=== PATIENT | male | born 1940 | race Caucasian/White ===

== ENCOUNTER → 2019-01-28 | Outpatient (CLI) | payer OTHER ==
[~2019-01-28] MED LIST: ALBU90OI INH; ALBU90OI PO; ALBU90OI6 INH; BUME1 PO; CALCIUM + VITA1 EACH PO; CARV25 PO; CARV3.125 PO; CLOT10 PO; DOXY100 PO; Daily Multiple1 EACH PO; FINA5 PO; FISH1000 PO; FLUSAL2505 INH; FLUSAL5005 IH; FLUSAL5005 INH; GABA100 PO; LIVALO2 MG PO; LOSA25; MAGCHL64ER PO; MAGNESIUM GLUC PO; MONT10T PO; MONT5TCH PO; NABU500 PO; NAPR500; NEBI5 PO; OMEP20ER PO; POTASSIUM GLUC500 MG PO; PRED10 PO; PRED20 PO; PRED5 PO; Prinivil10 MG PO; Qualaquin324 MG PO; Refresh Eye Dr1 EACH; SPIR25 PO; TORSE20 PO; WARF5 PO; ZOLP12.5 PO; [UNRECOGNIZED DRUG - CODE]; [UNRECOGNIZED DRUG - OTHER] INH
== END | disposition home or self-care (01) ==
LOC: LAB 17:19 → LAB SHORT 17:19
DX: R31.0 Gross hematuria (principal)
CPT/HCPCS: 87086

== ENCOUNTER 2019-12-15 14:17 | Day surgery (SDC) | payer OTHER | END 2019-12-15 22:56 | disposition home or self-care (01) | LOC: US 14:17 | DX: R59.0 Localized enlarged lymph nodes (principal) | CPT/HCPCS: 76536 ==

== ENCOUNTER → 2020-04-19 | Outpatient (CLI) | payer OTHER | END | disposition home or self-care (01) | LOC: LAB 10:45 → LAB SHORT 10:45 | DX: R05 Cough (principal) | CPT/HCPCS: 87070; 87186; 87205 ==

== ENCOUNTER → 2020-05-05 | Outpatient (CLI) | payer OTHER | END | disposition home or self-care (01) | LOC: PLD 08:15 → LAB SHORT 08:15 | DX: R05 Cough (principal) | CPT/HCPCS: 87070; 87205 ==

== ENCOUNTER → 2022-09-05 | Outpatient (CLI) | payer OTHER ==
[2022-09-05 15:46] LABS: BASOPHILS ABSOLUTE AUTO 0.06 K/mm3 (0.00-0.23); BASOPHILS PERCENT AUTO 1 % (0-2); EOSINOPHILS ABSOLUTE AUTO 0.08 K/mm3 (0.00-0.68); EOSINOPHILS PERCENT AUTO 1 % (0-6); Hematocrit 42.1 % (37.0-53.0); Hemoglobin 12.6 g/dL (13.5-17.5); IMMATURE GRAN PERCENT AUTO 1 % (0-1); LYMPHOCYTES ABSOLUTE AUTO 1.91 K/mm3 (0.84-5.20); LYMPHOCYTES PERCENT AUTO 18 % (21-46); MONOCYTES ABSOLUTE AUTO 0.82 K/mm3 (0.16-1.47); MONOCYTES PERCENT AUTO 8 % (4-13); Mean Corpuscular HGB 27.9 pg (26.0-34.0); Mean Corpuscular HGB Conc 29.9 g/dL (31.5-36.5); Mean Corpuscular Volume 93 fL (80-100); NEUTROPHILS ABSOLUTE AUTO 7.61 K/mm3 (1.96-9.15); NEUTROPHILS PERCENT AUTO 72 % (41-73); Platelet Count 236 K/mm3 (150-400); RDW Coefficient Variation 16.1 % (11.7-14.2); RDW Standard Deviation 54.4 fL (35.1-46.3); RETICULOCYTE COUNT PERCENT 2.19 % (0.50-2.50); Red Blood Cell Count 4.52 M/mm3 (4.30-5.90); White Blood Cell Count 10.58 K/mm3 (4.00-11.30)
[2022-09-05 17:19] LABS: Microalb/Creat Ratio UR, Rand 15.704 mg/g (0.000-30.000); Microalbumin, Random Urine 22.3 mg/L (0.000-20.000)
[2022-09-05 18:04] LABS: Alanine Aminotransfer (ALT/SGP 26 U/L (12-78); Albumin, Blood 3.5 g/dL (3.4-5.0); Alk Phos 44 U/L (50-136); Anion Gap 7 mmol/L (6-16); Aspartate Aminotrans (AST/SGOT 17 U/L (12-37); Bilirubin, Direct <0.1 mg/dL (0.0-0.3); Bilirubin, Indirect Unable to Calculate mg/dL (0.1-0.7); Bilirubin, Total 0.4 mg/dL (0.1-1.0); Blood Urea Nitrogen 39 mg/dL (8-24); Bun/Creatinine Ratio 20.5 (12.0-20.0); CHOL/HDL RATIO 4.6; CO2, Blood 33 mmol/L (21-32); Calcium, Blood 9.4 mg/dL (8.5-10.1); Chloride, Blood 100 mmol/L (98-108); Cholesterol 216 mg/dL (50-200); Ferritin, Serum 51 ng/mL (26-388); Globulin, Blood 3.6 g/dL (2.2-4.0); Glomerular Filtration Rate 35 (60-); Glucose, Blood 87 mg/dL (70-99); HDL Cholesterol 47 mg/dL (>39); Iron Serum 59 ug/dL (65-175); LDL/HDL RATIO 2.8; Low Density Lipoprotein Chol 131 mg/dL (0-110); Magnesium, Blood 2.1 mg/dL (1.6-2.4); Potassium, Blood 3.9 mmol/L (3.5-5.5); Sodium, Blood 140 mmol/L (136-145); Total Protein, Blood 7.1 g/dL (6.4-8.2); Triglycerides 190 mg/dL (30-160); Very Low Density Lipoprot Chol 38 mg/dL (6-32)
[2022-09-05 18:10] LABS: Free Thyroxine 0.96 ng/dL (0.70-1.60); Percent Saturation 14.8 % (20.0-50.0); Total Iron Binding Capacity 400 ug/dL (250-450)
== END | disposition home or self-care (01) ==
LOC: LAB SHORT 14:08 → LAB 14:08
PROVIDERS: Internal Medicine
DX: D64.9 Anemia, unspecified (principal); E11.8 Type 2 diabetes mellitus with unspecified complications; E78.5 Hyperlipidemia, unspecified; E02 Subclinical iodine-deficiency hypothyroidism; Z79.899 Other long term (current) drug therapy
CPT/HCPCS: 80048; 80061; 80076; 82043; 82570; 82728; 83036; 83540; 83550; 83735; 84439; 84443; 85025; 85045

== ENCOUNTER → 2022-10-15 | Outpatient (CLI) | payer OTHER ==
[2022-10-15 14:57] LABS: Albumin/Globulin Ratio 0.9 (0.8-1.8); Bilirubin, Total 0.5 mg/dL (0.1-1.0); Bun/Creatinine Ratio 28.5 (12.0-20.0); Creatinine, Blood 1.79 mg/dL (0.60-1.20); Globulin, Blood 3.4 g/dL (2.2-4.0); Potassium, Blood 3.7 mmol/L (3.5-5.5); Total Protein, Blood 6.4 g/dL (6.4-8.2)
== END | disposition home or self-care (01) ==
LOC: LAB SHORT 10:30 → LAB 10:30
PROVIDERS: Internal Medicine
DX: C79.89 Secondary malignant neoplasm of other specified sites (principal); I50.20 Unspecified systolic (congestive) heart failure
CPT/HCPCS: 36415; 80053; 83880

== ENCOUNTER 2022-10-17 01:07 | Day surgery (SDC) | payer OTHER | END 2022-10-17 22:35 | disposition home or self-care (01) | LOC: WOUND 01:07 | DX: I87.313 Chronic venous hypertension (idiopathic) with ulcer of bilateral lower extremity (principal); E11.622 Type 2 diabetes mellitus with other skin ulcer; L97.812 Non-pressure chronic ulcer of other part of right lower leg with fat layer exposed; L97.822 Non-pressure chronic ulcer of other part of left lower leg with fat layer exposed; I87.2 Venous insufficiency (chronic) (peripheral); E11.51 Type 2 diabetes mellitus with diabetic peripheral angiopathy without gangrene; Z87.891 Personal history of nicotine dependence; J44.9 Chronic obstructive pulmonary disease, unspecified; I13.0 Hypertensive heart and chronic kidney disease with heart failure and stage 1 through stage 4 chronic kidney disease, or unspecified chronic kidney disease; E11.22 Type 2 diabetes mellitus with diabetic chronic kidney disease; N18.6 End stage renal disease; I50.9 Heart failure, unspecified; I48.91 Unspecified atrial fibrillation; I25.10 Atherosclerotic heart disease of native coronary artery without angina pectoris; Z88.1 Allergy status to other antibiotic agents; Z88.8 Allergy status to other drugs, medicaments and biological substances | CPT/HCPCS: A9270; G0463 ==

== ENCOUNTER 2022-10-24 02:47 | Day surgery (SDC) | payer OTHER | END 2022-10-24 23:18 | disposition home or self-care (01) | LOC: WOUND 02:47 | DX: I87.313 Chronic venous hypertension (idiopathic) with ulcer of bilateral lower extremity (principal); L97.822 Non-pressure chronic ulcer of other part of left lower leg with fat layer exposed; L97.812 Non-pressure chronic ulcer of other part of right lower leg with fat layer exposed; I87.2 Venous insufficiency (chronic) (peripheral); I73.9 Peripheral vascular disease, unspecified | CPT/HCPCS: A9270; G0463 ==

== ENCOUNTER 2022-11-04 02:05 | Day surgery (SDC) | payer OTHER | END 2022-11-04 22:41 | disposition home or self-care (01) | LOC: WOUND 02:05 | DX: I87.313 Chronic venous hypertension (idiopathic) with ulcer of bilateral lower extremity (principal); I87.331 Chronic venous hypertension (idiopathic) with ulcer and inflammation of right lower extremity; E11.622 Type 2 diabetes mellitus with other skin ulcer; L97.812 Non-pressure chronic ulcer of other part of right lower leg with fat layer exposed; L97.822 Non-pressure chronic ulcer of other part of left lower leg with fat layer exposed; L97.922 Non-pressure chronic ulcer of unspecified part of left lower leg with fat layer exposed; L97.202 Non-pressure chronic ulcer of unspecified calf with fat layer exposed; I87.2 Venous insufficiency (chronic) (peripheral); I73.9 Peripheral vascular disease, unspecified | CPT/HCPCS: G0463 ==

== ENCOUNTER → 2022-11-08 | Outpatient (CLI) | payer OTHER ==
[2022-11-08 12:32] LABS: BASOPHILS ABSOLUTE AUTO 0.04 K/mm3 (0.00-0.23); BASOPHILS PERCENT AUTO 0 % (0-2); EOSINOPHILS ABSOLUTE AUTO 0.06 K/mm3 (0.00-0.68); EOSINOPHILS PERCENT AUTO 1 % (0-6); Hematocrit 39.3 % (37.0-53.0); IMMATURE GRAN ABSOLUTE AUTO 0.13 K/mm3 (0.00-0.10); IMMATURE GRAN PERCENT AUTO 1 % (0-1); LYMPHOCYTES ABSOLUTE AUTO 0.96 K/mm3 (0.84-5.20); LYMPHOCYTES PERCENT AUTO 10 % (21-46); MONOCYTES ABSOLUTE AUTO 0.59 K/mm3 (0.16-1.47); MONOCYTES PERCENT AUTO 6 % (4-13); Mean Corpuscular HGB 28.3 pg (26.0-34.0); Mean Corpuscular HGB Conc 30.5 g/dL (31.5-36.5); Mean Corpuscular Volume 93 fL (80-100); Mean Platelet Volume 10.5 fL (9.1-12.4); NEUTROPHILS ABSOLUTE AUTO 8.37 K/mm3 (1.96-9.15); NEUTROPHILS PERCENT AUTO 82 % (41-73); Platelet Count 258 K/mm3 (150-400); RDW Coefficient Variation 17.5 % (11.7-14.2); RDW Standard Deviation 59.2 fL (35.1-46.3); Red Blood Cell Count 4.24 M/mm3 (4.30-5.90); White Blood Cell Count 10.15 K/mm3 (4.00-11.30)
[2022-11-08 14:05] LABS: Bun/Creatinine Ratio 35.9 (12.0-20.0); Calcium, Blood 9.2 mg/dL (8.5-10.1); Creatinine, Blood 1.81 mg/dL (0.60-1.20); Magnesium, Blood 2.4 mg/dL (1.6-2.4); Potassium, Blood 4.2 mmol/L (3.5-5.5)
== END | disposition home or self-care (01) ==
LOC: LAB SHORT 10:30 → LAB 10:30
PROVIDERS: Internal Medicine
DX: D64.9 Anemia, unspecified (principal); M79.605 Pain in left leg; M79.604 Pain in right leg; Z79.899 Other long term (current) drug therapy
CPT/HCPCS: 80048; 83735; 85025

== ENCOUNTER 2022-11-18 01:29 | Day surgery (SDC) | payer OTHER | END 2022-11-18 22:45 | disposition home or self-care (01) | LOC: WOUND 01:29 | DX: E11.622 Type 2 diabetes mellitus with other skin ulcer (principal); L97.812 Non-pressure chronic ulcer of other part of right lower leg with fat layer exposed; L97.822 Non-pressure chronic ulcer of other part of left lower leg with fat layer exposed; E11.621 Type 2 diabetes mellitus with foot ulcer; L89.152 Pressure ulcer of sacral region, stage 2; I87.313 Chronic venous hypertension (idiopathic) with ulcer of bilateral lower extremity; E11.51 Type 2 diabetes mellitus with diabetic peripheral angiopathy without gangrene; L97.502 Non-pressure chronic ulcer of other part of unspecified foot with fat layer exposed | CPT/HCPCS: A9270 ==

== ENCOUNTER 2022-12-02 03:50 | Day surgery (SDC) | payer OTHER | END 2022-12-02 22:48 | disposition home or self-care (01) | LOC: WOUND 03:50 | DX: I87.312 Chronic venous hypertension (idiopathic) with ulcer of left lower extremity (principal); I87.313 Chronic venous hypertension (idiopathic) with ulcer of bilateral lower extremity; I87.331 Chronic venous hypertension (idiopathic) with ulcer and inflammation of right lower extremity; L97.922 Non-pressure chronic ulcer of unspecified part of left lower leg with fat layer exposed; L97.202 Non-pressure chronic ulcer of unspecified calf with fat layer exposed; I87.2 Venous insufficiency (chronic) (peripheral); I73.9 Peripheral vascular disease, unspecified; L89.153 Pressure ulcer of sacral region, stage 3 | CPT/HCPCS: A9270; G0463 ==

== ENCOUNTER 2023-01-13 00:36 | Day surgery (SDC) | payer OTHER | END 2023-01-13 22:53 | disposition home or self-care (01) | LOC: WOUND 00:36 | DX: I87.313 Chronic venous hypertension (idiopathic) with ulcer of bilateral lower extremity (principal); I87.331 Chronic venous hypertension (idiopathic) with ulcer and inflammation of right lower extremity; L97.922 Non-pressure chronic ulcer of unspecified part of left lower leg with fat layer exposed; L97.202 Non-pressure chronic ulcer of unspecified calf with fat layer exposed; I87.2 Venous insufficiency (chronic) (peripheral); I73.9 Peripheral vascular disease, unspecified | CPT/HCPCS: A9270; G0463 ==

== ENCOUNTER 2023-01-28 17:47 | Inpatient (IN) | payer OTHER ==
[~2023-01-28] VITALS: Ht 179.1 cm; Wt 79.4 kg
[~2023-01-28 17:47] MED LIST changes: -ALBU90OI PO
[2023-01-28] MEDS ORDERED: OXYC5 PO (18:14)
[2023-01-28] MEDS ORDERED: XARELTO15 M1 PO (18:14)
[2023-01-28] MEDS ORDERED: ALLO300 PO (18:15)
[2023-01-28] MEDS ORDERED: PREGABALIN25 MG PO (18:16)
[2023-01-28 19:11] LABS: BASOPHILS ABSOLUTE AUTO 0.03 K/mm3 (0.00-0.23); BASOPHILS PERCENT AUTO 0 % (0-2); EOSINOPHILS ABSOLUTE AUTO 0.01 K/mm3 (0.00-0.68); EOSINOPHILS PERCENT AUTO 0 % (0-6); Hematocrit 42.9 % (37.0-53.0); Hemoglobin 13.2 g/dL (13.5-17.5); IMMATURE GRAN ABSOLUTE AUTO 0.24 K/mm3 (0.00-0.10); IMMATURE GRAN PERCENT AUTO 2 % (0-1); LYMPHOCYTES ABSOLUTE AUTO 0.56 K/mm3 (0.84-5.20); LYMPHOCYTES PERCENT AUTO 5 % (21-46); MONOCYTES ABSOLUTE AUTO 0.52 K/mm3 (0.16-1.47); MONOCYTES PERCENT AUTO 4 % (4-13); Mean Corpuscular HGB 28.1 pg (26.0-34.0); Mean Corpuscular HGB Conc 30.8 g/dL (31.5-36.5); Mean Corpuscular Volume 92 fL (80-100); Mean Platelet Volume 10.6 fL (9.1-12.4); NEUTROPHILS ABSOLUTE AUTO 10.57 K/mm3 (1.96-9.15); NEUTROPHILS PERCENT AUTO 89 % (41-73); NRBC ABSOLUTE 0.03 K/mm3 (0.00-0.02); NRBC Auto 0.3 /100 WBC (0.0-0.2); Platelet Count 271 K/mm3 (150-400); RDW Coefficient Variation 17.2 % (11.7-14.2); RDW Standard Deviation 56.6 fL (35.1-46.3); Red Blood Cell Count 4.69 M/mm3 (4.30-5.90); White Blood Cell Count 11.93 K/mm3 (4.00-11.30)
[2023-01-28 19:36] LABS: Albumin, Blood 3.1 g/dL (3.4-5.0); Albumin/Globulin Ratio 0.7 (0.8-1.8); Bilirubin, Total 0.6 mg/dL (0.1-1.0); Bun/Creatinine Ratio 35.4 (12.0-20.0); Calcium, Blood 9.7 mg/dL (8.5-10.1); Creatinine, Blood 2.46 mg/dL (0.60-1.20); Globulin, Blood 4.6 g/dL (2.2-4.0); Potassium, Blood 5.6 mmol/L (3.5-5.5); Total Protein, Blood 7.7 g/dL (6.4-8.2)
[2023-01-28 21:12] LABS: Source, Urine Clean Catch
[2023-01-28 21:15] LABS: Appearance, Urine Clear (Clear); Bilirubin, Urine Neg (Neg); Blood, Urine 1+ (Neg); Color, Urine Yellow (P-Yellow); Glucose Qualitative, Urine Neg (Neg); Ketones, Urine Neg (Neg); Leukocyte Esterase, Urine 1+ (Neg); Nitrite, Urine Neg (Neg); Protein, Urine Neg (Neg); Urobilinogen, Urine NORM (Normal)
[2023-01-28 21:30] LABS: Bacteria Few /hpf; Hyaline Casts 0-2 /lpf (0-2); Red Blood Cells, Urine 0-2 /hpf (0-2); Squamous Epithelial Cells Rare /hpf (Few); White Blood Cells, Urine 0-2 /hpf (0-5)
--- NOTE | 2023-01-28 22:47 | NUR ---
PT CHART REVIEWED FOR ADMIT
[2023-01-28 23:41] VITALS: BP 141/77
--- NOTE | 2023-01-29 03:51 | NUR ---
SHIFT SUMMARY. PT ARRIVED ON UNIT AROUND ~0000. AOX2 BUT PLEASANT AND COOPERATIVE WITH CARE. SOMEWHAT ANXIOUS. EXTENSIVE WOUNDS ON BLE, SKIN TEAR ON ARABELLA, SMALL OPEN WOUND ON SACRAL AREA. PICTURES TAKEN ALTHOUGH UNABLE TO PRINT AT THIS TIME. SOME MINOR COMPLAINTS OF BACK PAIN THAT HAVE BEEN WELL MANAGED ON CURRENT MEDICATION REGIMEN. 2 L O2 RUNNING SINCE ARRIVING, SATTING WELL ON THAT. PT COMPLAINED SEVERAL TIMES OF FEELING THE NEED TO VOID BUT WAS UNABLE TO DO SO. BLADDER SCAN REVEALED >500 MLS OF URINE IN BLADDER. CALLED RESIDENT WHO ORDERED JARA CATHETER. CATHETER HAS BEEN DRAINING WELL WITH SEVERAL HUNDRED MLS OF OUTPUT. ALL OPEN WOUNDS DRESSED. WOUND CARE CONSULT PLACED BY RESIDENT. ADMISSION ASSESSMENT COMPLETED. PT HAS SLEPT THROUGH MUCH OF SHIFT AFTER ADMISSION ASSESSMENT. HAS NOT USED CALL LIGHT BUT WAS EDUCATED ON ITS USE. BED LOCKED IN LOWEST POSITION. CALL LIGHT LEFT WITHIN REACH.
[2023-01-29 04:08] VITALS: BP 100/57
[2023-01-29 06:20] LABS: Albumin, Blood 2.7 g/dL (3.4-5.0); Albumin/Globulin Ratio 0.7 (0.8-1.8); Bilirubin, Total 0.4 mg/dL (0.1-1.0); Bun/Creatinine Ratio 37.4 (12.0-20.0); Creatinine, Blood 1.87 mg/dL (0.60-1.20); Globulin, Blood 3.9 g/dL (2.2-4.0); Potassium, Blood 5.1 mmol/L (3.5-5.5); Total Protein, Blood 6.6 g/dL (6.4-8.2)
[2023-01-29 07:09] VITALS: BP 124/107
[2023-01-29] MEDS ORDERED: NEBI5 PO (10:50)
[2023-01-29] MEDS ORDERED: POTA10T PO (10:55)
[2023-01-29] MEDS ORDERED: Vitamin D1000 UNI1 PO (10:58)
[2023-01-29] MEDS ORDERED: QUININE SULFAT324 M1 PO (10:59)
--- NOTE | 2023-01-29 11:26 | NUR ---
Pt. is somnolent and mostly non responsive. Pts. spouse and DIL are present. Faciltate a life review focusing on the events that led to Pts. hospitalization. Pts. spouse displays evidence of being understanding and realistic, but verbalizes looking forawrd to a clearer diagnosis. Listen with a calming presence. Attending nurse Anthony is present. Pt. was able to minimally respond and welcomed prayer. Prayed with Pt. Family verbalized gratitude for the spiritual care visit.
[2023-01-29 13:01] VITALS: BP 98/62
[2023-01-29 16:02] VITALS: BP 107/72
--- NOTE | 2023-01-29 16:34 | NUR ---
PT IS A/OX2-3. SELF, FAMILY AND PLACE. THE PT HAS BEEN BEDREST TODAY DUE TO PAIN IN HIS BLE'S. THE PT WAS MEDICATED FOR PAIN T/O THE DAY. PT WAS GIVEN IV DILAUDID WITH GOOD RESULTS THIS AM. THE PT WAS GIVEN OXYCODONE THIS AFTERNOON WITH MINIMAL RESULT. PT IS C/O PAIN IN HIS NECK AND BACK WELL LE'S. A HEATING PAD WAS APPLIED TO THE PTS MID BACK. PT WAS GIVEN MAGIC MOUTH WASH RECCOMMENDED BY THE DENTAL HYGIENIST FOR MOUTH SORES. FAMILY IS AT THE BEDSIDE AT THIS TIME. CALL LIGHT IN REACH. WILL CONTINUE TO MONITOR AND ASSESS FOR CHANGES
[2023-01-29 19:30] VITALS: BP 111/55
--- NOTE | 2023-01-29 23:04 | NUR ---
ASSUMED CARE OF PT. FAMILY AT BEDSIDE. PT LITTLE CONFUSED BUT REOIENTED QUICKLY C/O PAIN TO LEGS AND BACK. SON AT BEDSIDE AND WE DISCUSSED HIGHER LEVEL OF HOME CARFE LIKE SNF WHEN LEAVING HERE BECAUSE MOTHER CANNOT TAKE CARE OF PT ANYLONGER PT WORSENS. DRESSING CHANGE DONE TO LEFT LEG FOR PT COMFORT AND HEEL BOOTS PLACED TO HELP WITH REPOSITIONING.
--- NOTE | 2023-01-30 00:58 | NUR ---
SPOKE WITH MD ABOUT PT PAIN AND SOB AWARE NO CHANGE IN MEDS 2L NC KEPT ON PT RT CAN BE CALLED IF NEEDED. WILL CONT MONITORING.
[2023-01-30 04:50] VITALS: BP 137/75
[2023-01-30 05:16] LABS: Hematocrit 38.8 % (37.0-53.0); Hemoglobin 11.9 g/dL (13.5-17.5); Mean Corpuscular HGB 28.3 pg (26.0-34.0); Mean Corpuscular HGB Conc 30.7 g/dL (31.5-36.5); Mean Corpuscular Volume 92 fL (80-100); Mean Platelet Volume 10.6 fL (9.1-12.4); NRBC ABSOLUTE 0.02 K/mm3 (0.00-0.02); NRBC Auto 0.2 /100 WBC (0.0-0.2); Platelet Count 223 K/mm3 (150-400); RDW Coefficient Variation 17.2 % (11.7-14.2); RDW Standard Deviation 58.1 fL (35.1-46.3); White Blood Cell Count 11.74 K/mm3 (4.00-11.30)
[2023-01-30 05:40] LABS: Bun/Creatinine Ratio 37.9 (12.0-20.0); Calcium, Blood 9.1 mg/dL (8.5-10.1); Creatinine, Blood 1.61 mg/dL (0.60-1.20); Potassium, Blood 4.6 mmol/L (3.5-5.5)
--- NOTE | 2023-01-30 06:29 | NUR ---
PT MORE ALERT THIS MORNING BUT STILL HAVING FOOT AND BACK PAIN, PT AWAITING FAMILY TO ARRIVE.
[2023-01-30 07:26] VITALS: BP 129/62
--- NOTE | 2023-01-30 12:40 | NUR ---
Spoke with RN Josias Jackson who reports Pt may benefit from education on hospice philosophy and options available. Spoke with Dr Dennison and discussed case. Pt resting in bed and is A&OX2/3. Pt unable to state name of the hospital correctly and states [facility]. Pt not able to given appropriate reason for hospital stay. Pt does state correct year but does not know current president. Offered supportive visit. Spoke with MIKALA Khan who is covering for Primary RN Anthony. Family just recently left but possibly may return after they eat lunch. Plan: Supportive visit and discuss goals of care. Palliative Care will remain available
--- NOTE | 2023-01-30 12:46 | NUR ---
Pt. is awake. Spouse is present and welcomes my visit. Many family are also present. Family are unsettled by the wait for a visit from Physician. Normalize the pt. expereince. Family display evidence of understanding and agrrement. Member of care management arrived, david daugherty excused himiself. Family verbalized gratitude for the spiritual care visit. Will remain avilable to the Pt. and family.
--- NOTE | 2023-01-30 14:09 | NUR ---
Received call from Pt's Primary RN Anthony reporting family is at bedside. Per family request had conversation out in [place]. Offered therapeutic listening and answered questions. Discussed options including hospice and palliative care program. Family reports Pt's PCP has recommended hospice in the past and Pt was not ready at that time. Listened as Pt will make statements of not wanting to give up and not ready to but his behaviors contradict his statements. Pt does not like going to doctor appointments and has quit seeing his specialists. Continued therapeutic listening as spouse reports Pt requires assistance with tranfers, uses wheel chair with propelling Pt in chair, requires assistance with bathing, and dressing. Pt's appetite has been poor as well and has lost significant amount of weight. Educated on hospice philosophy and palliative care philosophy. Family expresses appreciation and report plan to consider options further. PPS 40% ADLs 4/6 Palliative Care will remain available
[2023-01-30 16:06] VITALS: BP 115/53
--- NOTE | 2023-01-30 16:28 | NUR ---
PT IS A/O TO SELF, SURROUNDINGS, AND FAMILY. PT HAS BEEN BEDREST, REPOSITIONED T/O THE DAY. THE PT HAS BEEN MEDICATED T/O THE DAY FOR PAIN. PTS FAMILY WAS AT THE BEDSIDE T/O THE DAY. THE FAMILY SPOKE WITH TORI, DR. HSIEH AND PALLIATIVE CARE. SALLIE EQUIPMENT STERILIZER CAME AND ASSESSED AND REDRESSED THE PT WOUNDS. PT WAS ENCOURAGED TO EAT AND DRINK, HE ONLY TOOK SMALL BITE AND SIPS T/O THE DAY. CALL LIGHT IN REACH. WILL CONTINUE TO MONITOR AND ASSESS FOR CHANGES
[2023-01-30 20:34] VITALS: BP 123/62
--- NOTE | 2023-01-31 03:05 | NUR ---
ASSUMED CARE OF PT VSS, C/O PAIN TO BACK AND LEGS BUT MOSTLY NOT BEING ABLE TO GET COMFORTABLE. MEDICATED PT AND REPOSITIONED MULTIPLE TIMES. NEW IV STARTED IN ANTICIPATION OF CURRENT IV NOT WORKING. CURRENT IV SITE RED AND SLIGHTLY SWOLLEN BUT STILL GIVING GOOD BLOOD RETURN. SWELLING MAY ALSO BE FROM SKIN TEAR CLOSE TO SITE. PT SLIGHTLY CONFUSED BUT IS EASILY REORIENTED. CONT MONITORING.
--- NOTE | 2023-01-31 05:32 | NUR ---
SHIFT SUMMARY FIRE SAFTEY DONE. PT STILL HAVING A BIT OF PAIN AND JUST SEEMS UNCOMFORTABLE EXPLAINED TO PT WE WOULD BE REPOSITIONING EVERY FEW HOURS ALONG WITH PAIN MEDICATION. PT HAVING INTERMINIT BOUTS OF CONFUSION BUT IS EALILY REORIENTED, SEEMS TIME GOES ON PT MORE COMFORTABLE LONG WE STAY UP WITH MEDICATIONS.
[2023-01-31 07:31] VITALS: BP 131/71
--- NOTE | 2023-01-31 14:21 | NUR ---
Spiritual Care Visit. Pt. is mostly non responsive. Spouse is present and welcomes my visit. Facilitate a long life review and re-establish rapport. After a memebr of care management met with spouse, this auto body repair teacher was able to normalize the Pt. experience. Spouse displayed evidence of understanding and acceptance. Prayed with Pt. and Spouse. Spouse verbalized gratitude for the spiritual care visit.
[2023-01-31 15:21] VITALS: BP 121/58
--- NOTE | 2023-01-31 16:23 | NUR ---
PT IS A/OX3, SELF, FAMILY AND SURROUNDINGS. PT IS FORGETFULL. THE PT APPEARS TO BE BREATHING EASILY ON RA, THE PT WAS MEDICATED FOR PAIN T/O THE DAY AND HAS BEEN DROWSY. POOR APPETITE. VERY LITTLE PO INTAKE. BOTH NURSING STAFF AND FAMILY HAS ENCOURAGED THE PT TO TRY TO TAKE SOME KIND OF PO INTAKE, BUT THE PT REFUSES. THE PT WAS REPOSITIONED T/O THE DAY LE'S ELEVATED ON PILLOWS. PTS SAT WITH HIM FOR MOST OF THE DAY. CALL LIGHT IN REACH, WILL CONTINUE TO MONITOR AND ASSESS FOR CHANGES.
[2023-01-31 19:23] VITALS: BP 134/59
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
[2023-02-01 04:20] VITALS: BP 140/68
--- NOTE | 2023-02-01 04:47 | NUR ---
SHIFT SUMMARY SEE PRIOR RN NOTE. MR CRUZ WAS DROWSY DURING THE FIRST PART OF THE SHIFT, WAKING TO VOICE BUT VERY LITTLE VERBAL RESPONSE. MID SHIFT HE BECAME MORE ALERT BUT HE HAS CONTINUED TO DENY PAIN MEDICATIONS. HE WAS OFFERED PAIN MEDICATIONS FREQUENTLY IT WAS PREVIOUSLY DOCUMENTED THAT PAIN CONTROL WAS A DIFFICULT ISSUE BUT HE HAS EVERY TIME EITHER NOT ANSWERED ME OR DECLINED MEDICATIONS - "I'M FINE". TURNED AND REPOSITIONED WITH 2 STAFF. BED LOW, CALL LIGHT IN REACH, BED ALARM IN USE.
[2023-02-01 07:00] VITALS: BP 125/65
--- NOTE | 2023-02-01 08:00 | NUR ---
PT AWAKENS TO SPEAK. DOES NOT ANSWER QUESTIONS FOR ME. FALLS ASLEEP MIDSENTENCE WHEN TALKING TO HIM. STATES [place] BEEN [place] COUPLE MONTHS. H/R IRREG. NO MURMUR NOTED. NO TELE. LUNGS CLEAR ON LEFT, WHEEZY AND LIGHTLY COARSE ON RT. ABD IS SOFT, SOME TENDER PER PT. NO ANSWER ON LAST BM. VOIDS PER JARA CATH, YELLOW FLUID DRAINING. BED IN LOW POSITION, CALL LITE IN REACH, BED ALARM ON FOR SAFETY
[2023-02-01 14:58] VITALS: BP 125/74
--- NOTE | 2023-02-01 17:39 | NUR ---
PT MOSTLY NOT TALKING. OFTEN FALLS ASLEEP MIDSENTENCE WHILE I AM ASKING HIM A QUESTION. STATES [place] BE[place] FOR COUPLE [place]. PT MOSTLY DOES NOT ANSWER ANYTHING. OCCATIONALLY DOES ANSWER WITH ONE WORD RESPONSE. TOO SEDATE TO TAKE MEDS THIS AM. DR DID CHANGE MS CONTIN TO FENTANYL PATCH, ALSO DR AND PATIENT CHANGED TO DNR. NO OTHER NEW CONCERNS NOTED. BED IN LOW POSITION, CALL LITE IN REACH, BED ALARM ON FOR SAEFTY
--- NOTE | 2023-02-01 18:31 | NUR ---
RAJNI REPORTS SHE HAVE TRIED TO ENCOURAGE PT TO EAT ALL DAY. VERY LILTTLE IF ANYTHING EXCEPT A FEW SIPS TODAY. JUST CLOSES EYES AGAIN.
[2023-02-01 19:36] VITALS: BP 143/71
[2023-02-02 04:17] VITALS: BP 156/77
[2023-02-02 07:00] VITALS: BP 126/75
--- NOTE | 2023-02-02 11:56 | NUR ---
THIS RN CALLED TO ROOM AT 1105. SPOUSE SAYS SHE THINKS HE HAS PASSED. CONFIRMED WITH JOÃO BACH. 2 NURSE VERIFICATION THAT YES HE HAD PASSED. RAEANN BACH NOTIFIED AND SHE NOTIFIED DONOR LINE AND CALLED INFORMATION SYSTEMS SECURITY DEVELOPER. SPOUSE CALLED HER SONS AND THAT WILL COME IN. LIST OF MORTUARY'S IS PROVIDED TO SPOUSE AND FIRST SON TO ARRIVE.
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
== END 2023-02-02 11:10 | DRG 683 ==
LOC: ER 17:47 → MEDS 17:48
PROVIDERS: Family Medicine; Internal Medicine; Student in an Organized Health Care Education/Training Program; ADMIT Internal Medicine
DX: N17.9 Acute kidney failure, unspecified (principal); E87.1 Hypo-osmolality and hyponatremia; I50.22 Chronic systolic (congestive) heart failure; E87.20 Acidosis, unspecified; I48.20 Chronic atrial fibrillation, unspecified; L03.116 Cellulitis of left lower limb; L03.115 Cellulitis of right lower limb; Z51.5 Encounter for palliative care; Z66 Do not resuscitate; E87.5 Hyperkalemia; J44.9 Chronic obstructive pulmonary disease, unspecified; F03.90 Unspecified dementia, unspecified severity, without behavioral disturbance, psychotic disturbance, mood disturbance, and anxiety; G89.29 Other chronic pain; M54.9 Dorsalgia, unspecified; M10.9 Gout, unspecified; K21.9 Gastro-esophageal reflux disease without esophagitis; L89.622 Pressure ulcer of left heel, stage 2; N18.30 Chronic kidney disease, stage 3 unspecified; L89.612 Pressure ulcer of right heel, stage 2; R33.9 Retention of urine, unspecified; E11.22 Type 2 diabetes mellitus with diabetic chronic kidney disease; E11.42 Type 2 diabetes mellitus with diabetic polyneuropathy; R29.6 Repeated falls; D86.89 Sarcoidosis of other sites; Z95.4 Presence of other heart-valve replacement; Z95.810 Presence of automatic (implantable) cardiac defibrillator; Z88.8 Allergy status to other drugs, medicaments and biological substances; Z88.5 Allergy status to narcotic agent; Z79.01 Long term (current) use of anticoagulants; Z79.899 Other long term (current) drug therapy; Z88.6 Allergy status to analgesic agent; Z87.891 Personal history of nicotine dependence; Z86.718 Personal history of other venous thrombosis and embolism; Z87.19 Personal history of other diseases of the digestive system; Z79.891 Long term (current) use of opiate analgesic
CPT/HCPCS: 36415; 71045; 80048; 80053; 81001; 83036; 83605; 85025; 85027; 87040; 87086; 93005; 93010; 93284; 94640; 94664; 94760; 96361; 96365; 96375; 97110; 97162; 97530; 99285-25; A9270; J0690; J0696; J1170; J1644; J7030; J7050